=== PATIENT | female | born 1955 | race Caucasian/White ===

== ENCOUNTER 2018-11-19 05:24 | Emergency (ER) | payer BC, OTHER ==
[2018-11-19 05:31] VITALS: BP 151/87; PULSE 98; RESP 17; TEMP 97.4
--- NOTE | 2018-11-19 05:33 | ED ---
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 She presents the ED today for reevaluation of cellulitis. Patient reports that 2 days ago she noticed a pimple off the lateral aspect of her right eyebrow. Yesterday she noted that it seemed to be getting more swollen and red so she was evaluated at urgent care where she was diagnosed with possible cellulitis possible infected sebaceous cyst. Patient was prescribed minocycline. Patient reports that she took 2 doses minocycline but upon waking this morning she noted that the area seemed to be more erythematous and swollen so she came to the ER for reevaluation. denies any associated symptoms. She denies any fevers, chills, nausea, vomiting. She denies any vision changes or pain with movement of her eye. She denies any previous history of infection. He denies any injury to the area. She denies any recurrent skin infections in the past though she does express concern that she is exposed to multiple pathogens in her work as a nurse. - Related Data Home Medications Medication Instructions Recorded Confirmed Amitriptyline HCl [Elavil] 100 mg PO HS 11/19/18 11/19/18 Cholecalciferol [Vitamin D3] 1,000 unit PO DAILY 11/19/18 11/19/18 Fluticasone Propionate [Flonase 1 spray EA NOSTRIL DAILY 11/19/18 11/19/18 Allergy Relief] Levothyroxine Sodium [Synthroid] 150 mcg PO DAILY 11/19/18 11/19/18 Minocycline HCl [Minocin] 100 mg PO Q12H 11/19/18 11/19/18 Previous Rx's Medication Instructions Recorded Clindamycin [Cleocin] 450 mg PO Q6H 7 Days capsule 11/19/18 Dicloxacillin [Dynapen] 500 mg PO Q6H 7 Days #28 capsule 11/19/18 Allergies Allergy/AdvReac Type Severity Reaction Status Date / Time ciprofloxacin [From Cipro] Allergy Rash/Hives Verified 11/19/18 05:31 ciprofloxacin HCl Allergy Rash/Hives Verified 11/19/18 05:31 [From Cipro] povidone-iodine Allergy Rash/Hives Verified 11/19/18 05:31 [From Betadine] soap [From Betadine] Allergy Rash/Hives Verified 11/19/18 05:31 Sulfa (Sulfonamide Allergy Rash/Hives Verified 11/19/18 05:31 Antibiotics) Review of Systems ROS Statement: Those systems with pertinent positive or pertinent negative responses have been documented in the HPI. ROS Other: All systems not noted in ROS Statement are negative. Past Medical History Past Medical History: Thyroid Disorder Additional Past Medical History / Comment(s): arthiritis, migraines History of Any Multi-Drug Resistant Organisms: None Reported Past Surgical History: Joint Replacement Additional Past Surgical History / Comment(s): bilateral knees Past Psychological History: No Psychological Hx Reported Smoking Status: Never smoker Past Alcohol Use History: None Reported Past Drug Use History: None Reported General Exam - General Exam Comments Initial Comments: GENERAL: Patient is well-developed and well-nourished. Patient is nontoxic and well- hydrated and is in no distress. HENT: Normocephalic, Atraumatic. Neck is soft and supple. No significant lymphadenopathy is noted. Oropharynx is clear. Moist mucous membranes. Neck has full range of motion without eliciting any pain. EYES: The sclera were anicteric and conjunctiva were pink and moist. Extraocular movements were intact and pupils were equal round and reactive to light. Eyelids were unremarkable. PULMONARY: Unlabored respirations. Good breath sounds bilaterally. No audible rales rhonchi or wheezing was noted. CARDIOVASCULAR: There is a regular rate and rhythm without any murmurs gallops or rubs. ABDOMEN: Soft and nontender with normal bowel sounds. SKIN: Small circular area of erythema superior lateral to the right eyebrow. There does appear to be a very small abscess similar to a pimple with surrounding erythema. The skin is indurated. There is no area of large fluctuance amenable to drainage. NEUROLOGIC: Patient is alert and oriented x3. Cranial nerves II through XII are grossly intact. Motor and sensory are also intact. Normal speech, volume and content. Symmetrical smile. MUSCULOSKELETAL: Normal extremities with adequate strength and full range of motion. No lower extremity swelling or edema. No calf tenderness. LYMPHATICS: No significant lymphadenopathy is noted PSYCHIATRIC: Normal psychiatric evaluation. Limitations: no limitations Limitations: no limitations Course Vital Signs 11/19/18 05:27 Temperature 97.4 F L Pulse Rate 98 Respiratory 17 Rate Blood Pressure 151/87 O2 Sat by Pulse 97 Oximetry Medical Decision Making - Medical Decision Making The patient was seen and evaluated history was obtained from the patient At this time I don't feel the patient warrants any further evaluation with labs or imaging. She has no signs or symptoms concerning for preseptal or orbital cellulitis I do feel the patient's high risk for MRSA infection will plan to change her antibiotics to clindamycin as well as a dicloxacillin to cover for any possible strep species. Patient agreeable to this plan. Close observation was advised. Return parameters were discussed. Signs and symptoms of preseptal or septal cellulitis were discussed. Questions pertaining care were answered patient was discharged home in stable condition. Disposition Clinical Impression: Cellulitis and abscess of face Disposition: HOME SELF-CARE Instructions (If sedation given, give patient instructions): Cellulitis (DC), Periorbital Cellulitis in Adults (ED) Prescriptions: Clindamycin [Cleocin] 450 mg PO Q6H 7 Days capsule Dicloxacillin [Dynapen] 500 mg PO Q6H 7 Days #28 capsule Is patient prescribed a controlled substance at d/c from ED?: No Referrals: Aravind Saba MD [Primary Care Provider] - 1-2 days
== END 2018-11-19 06:22 | disposition home or self-care (01) ==
LOC: EC 05:24
DX: L03.211 Cellulitis of face (principal); L02.01 Cutaneous abscess of face; E07.9 Disorder of thyroid, unspecified; Z79.899 Other long term (current) drug therapy; Z88.1 Allergy status to other antibiotic agents; Z88.2 Allergy status to sulfonamides; Z88.8 Allergy status to other drugs, medicaments and biological substances; Z91.09 Other allergy status, other than to drugs and biological substances; Z96.653 Presence of artificial knee joint, bilateral
CPT/HCPCS: 99283

== ENCOUNTER 2022-05-07 11:38 | Emergency (ER) | payer BC, MEDICARE ==
[2022-05-07 11:45] VITALS: RESP 18; TEMP 98
[2022-05-07] MEDS ORDERED: SODIUM CHLORIDE 0.9% 1,000 ML IV ONE (11:51)
[2022-05-07] MEDS ORDERED: methylPREDNISolone SOD SUCCI 125 MG/2 ML VIAL IV STA (11:51)
[2022-05-07] MEDS ORDERED: diphenhydrAMINE 50 MG/ML 1 ML VIAL IVP STA (11:51)
[2022-05-07] MEDS ORDERED: FAMOTIDINE 20 MG/2 ML VIAL IV STA (11:51)
--- NOTE | 2022-05-07 11:53 | ED ---
General Adult HPI - General Chief complaint: Allergic Reaction Stated complaint: Allergic reaction,SOB,Rash Time Seen by Provider: 05/07/22 11:45 Source: patient, RN notes reviewed, old records reviewed Mode of arrival: ambulatory Limitations: no limitations - History of Present Illness Initial comments: This is a 67-year-old female presents emergency department stating that she took Metamucil at about 8:30 and then by 9:00 she was itching felt like her throat was a little full but had no difficulty breathing or swallowing. Patient states she took Benadryl at 9:00 and symptoms continue she has rash on her arms and her abdomen and chest. Patient denies any chest pain. Patient denies palpitations. Patient denies any similar symptoms in the past. - Related Data Home Medications Medication Instructions Recorded Confirmed Amitriptyline HCl [Elavil] 100 mg PO HS 11/19/18 11/19/18 Cholecalciferol [Vitamin D3] 1,000 unit PO DAILY 11/19/18 11/19/18 Fluticasone Propionate [Flonase 1 spray EA NOSTRIL DAILY 11/19/18 11/19/18 Allergy Relief] Levothyroxine Sodium [Synthroid] 150 mcg PO DAILY 11/19/18 11/19/18 Minocycline HCl [Minocin] 100 mg PO Q12H 11/19/18 11/19/18 Previous Rx's Medication Instructions Recorded Clindamycin [Cleocin] 450 mg PO Q6H 7 Days capsule 11/19/18 Dicloxacillin [Dynapen] 500 mg PO Q6H 7 Days #28 capsule 11/19/18 predniSONE [Deltasone] 40 mg PO DAILY #8 tab 05/07/22 Allergies Allergy/AdvReac Type Severity Reaction Status Date / Time ceftibuten [From Cedax] Allergy Rash/Hives Verified 05/07/22 11:46 ciprofloxacin [From Cipro] Allergy Rash/Hives Verified 11/19/18 05:31 ciprofloxacin HCl Allergy Rash/Hives Verified 11/19/18 05:31 [From Cipro] povidone-iodine Allergy Rash/Hives Verified 11/19/18 05:31 [From Betadine] psyllium [From Metamucil] Allergy Rash/Hives Verified 05/07/22 11:46 soap [From Betadine] Allergy Rash/Hives Verified 11/19/18 05:31 Sulfa (Sulfonamide Allergy Rash/Hives Verified 11/19/18 05:31 Antibiotics) Review of Systems ROS Statement: Those systems with pertinent positive or pertinent negative responses have been documented in the HPI. ROS Other: All systems not noted in ROS Statement are negative. Past Medical History Past Medical History: Thyroid Disorder Additional Past Medical History / Comment(s): arthiritis, migraines History of Any Multi-Drug Resistant Organisms: None Reported Past Surgical History: Joint Replacement Additional Past Surgical History / Comment(s): bilateral knees Past Psychological History: No Psychological Hx Reported Smoking Status: Never smoker Past Alcohol Use History: Occasional Past Drug Use History: None Reported General Exam - General Exam Comments Initial Comments: GENERAL: Patient is well-developed and well-nourished. Patient is nontoxic and well- hydrated and is in mild distress. ENT: Neck is soft and supple. No significant lymphadenopathy is noted. Oropharynx is clear. Moist mucous membranes. Neck has full range of motion without eliciting any pain. EYES: The sclera were anicteric and conjunctiva were pink and moist. Extraocular movements were intact and pupils were equal round and reactive to light. Eyelids were unremarkable. PULMONARY: Unlabored respirations. Good breath sounds bilaterally. No audible rales rhonchi or wheezing was noted. CARDIOVASCULAR: There is a regular rate and rhythm without any murmurs gallops or rubs. ABDOMEN: Soft and nontender with normal bowel sounds. SKIN: Patient has erythematous rash on both arms abdomen and chest. NEUROLOGIC: Patient is alert and oriented x3. Cranial nerves II through XII are grossly intact. Motor and sensory are also intact. Normal speech, volume and content. Symmetrical smile. MUSCULOSKELETAL: Normal extremities with adequate strength and full range of motion. No lower extremity swelling or edema. No calf tenderness. LYMPHATICS: No significant lymphadenopathy is noted PSYCHIATRIC: Normal psychiatric evaluation. Limitations: no limitations Course Vital Signs 05/07/22 05/07/22 11:42 12:18 Temperature 98 F Pulse Rate 106 H Respiratory 18 18 Rate Blood Pressure 152/88 O2 Sat by Pulse 100 Oximetry Medical Decision Making - Medical Decision Making EKG shows sinus rhythm at 94 bpm ND interval 290 QRS is 97 QT interval 375 QTC is 426. Patient's EKG shows no ST segment elevation. Patient received Benadryl and Solu-Medrol and Pepcid in the emergency department. I went back into reevaluate the patient after about an hour and she was symptom- free at this time. Disposition Clinical Impression: Allergic reaction Disposition: HOME SELF-CARE Condition: Good Instructions (If sedation given, give patient instructions): General Allergic Reaction (ED) Prescriptions: predniSONE [Deltasone] 40 mg PO DAILY #8 tab Is patient prescribed a controlled substance at d/c from ED?: No Referrals: Aravind Saba MD [Primary Care Provider] - 1-2 days Time of Disposition: 12:53
[2022-05-07 13:05] VITALS: BP 139/90; PULSE 78
== END 2022-05-07 13:05 | disposition home or self-care (01) ==
LOC: EC 11:38
DX: R21 Rash and other nonspecific skin eruption (principal); T50.995A Adverse effect of other drugs, medicaments and biological substances, initial encounter; E07.9 Disorder of thyroid, unspecified; Z88.1 Allergy status to other antibiotic agents; Z91.041 Radiographic dye allergy status; Z91.048 Other nonmedicinal substance allergy status; Z88.8 Allergy status to other drugs, medicaments and biological substances; Z88.2 Allergy status to sulfonamides
CPT/HCPCS: 99283; 96374; 96375 ×2; 96361; 93005; J1200; J2930

== ENCOUNTER → 2022-09-29 | Outpatient (CLI) | payer MEDICARE ==
--- NOTE | 2022-09-29 17:50 | BD ---
EXAMINATION TYPE: Axial Bone Density DATE OF EXAM: 09/29/2022 CLINICAL HISTORY: 67 year old Female. ICD-10 CODE: Z78.0 Post menopausal Height: 66 Weight: 189.5 FRAX RISK QUESTIONS: Alcohol (3 or more units per day): no Family History (Parent hip fracture): yes Glucocorticoids (More than 3mos): no (Ex: prednisone, prednisolone, methylprednisolone, dexamethasone, and hydrocortisone). History of Fracture in Adulthood: no Secondary Osteoporosis: 1. Type 1 Diabetes: no 2. Hyperthyroidism: no 3. Menopause before 45: no 4. Malnutrition: no 5. Chronic liver disease: no Rheumatoid Arthritis: no Current Tobacco Use: no RISK FACTORS HISTORY OF: Surgery to Spine/Hip(right/left)/Wrist (right/left): right hip replaced 2018 Family History of Osteoporosis: yes Active: yes Diet low in dairy products/other sources of calcium: no Postmenopausal woman: no Lost more than 2 inches in height since high school: yes MEDICATIONS: Thyroid Medications: levothyroxine How Lon years Additional History: EXAM MEASUREMENTS: Bone mineral densitometry was performed using the [employer] System. Bone mineral density as measured about the Lumbar spine is: ----- L1-L4(G/cm2): 1.251 T Score Values are as follows: ----- L1: -1.2 ----- L2: 1.2 ----- L3: 1.8 ----- L4: 0.5 ----- L1-L4: 0.6 Bone mineral density : baseline Bone mineral density about the L hip (g/cm2): 0.837 T Score values are as follows: -----L Neck: -1.4 -----L Total: -1.9 Bone mineral density : baseline FRAX%s: The graph provided illustrates a 16.2% chance for a major osteoporotic fx and a 1.0% chance f or the hips probability for fx in 10 years time. IMPRESSION: Osteopenia (T Score between -2.5 and -1). There is slightly increased risk of fracture and the patient may be considered for treatment. Re-Screen 2-5 years. NOTE: T-SCORE=SD OF THE YOUNG ADULT MEAN.
== END | disposition home or self-care (01) ==
LOC: RADBDWWP 10:11
PROVIDERS: ATTEND Family Medicine
DX: M85.89 Other specified disorders of bone density and structure, multiple sites (principal); Z78.0 Asymptomatic menopausal state
CPT/HCPCS: 77080

== ENCOUNTER → 2022-11-24 | Outpatient (CLI) | payer MEDICARE ==
[2022-11-24 22:48] LABS: HGB 13.9 g/dL (12.0-15.0); MCH 29.3 pg (27.0-32.0); MCHC 33.9 g/dL (32.0-37.0); MCV 86.3 fL (80.0-97.0); Mean Platelet Volume 9.7 fL (9.5-12.2); NRBC Per 100 WBC 0 /100 WBCS (0.0-0.0); Platelet Count 251 X 10*3/uL (140-440); RBC 4.75 X 10*6/uL (4.10-5.20); RDW 13.6 % (11.5-14.5); WBC 6.15 X 10*3/uL (4.50-10.00)
[2022-11-24 23:45] LABS: Prolactin 6.9 ng/mL (2.800-29.200); Testosterone 13.9 ng/mL (7.00-45.62)
[2022-11-24 23:56] LABS: % Iron Saturation 14.88 (12.00-45.00); African American GFR (CKD) 87.3 (60.0-200.0); Albumin 4.8 g/dL (3.8-4.9); Albumin/Globulin Ratio 1.64 (1.60-3.17); Anion Gap 15.6 mmol/L (10.00-18.00); BUN/Creat Ratio 16.87 Ratio (12.00-20.00); Blood Urea Nitrogen 13.8 mg/dL (9.0-27.0); Calcium 10.2 mg/dL (8.7-10.3); Carbon Dioxide 24.7 mmol/L (20.0-27.5); Globulin 2.9 g/dL (1.6-3.3); Non-African American GFR(CKD) 75.3 (60.0-200.0); Potassium 4.1 mmol/L (3.5-5.5); Total Bilirubin 0.4 mg/dL (0.30-1.20); Total Protein 7.7 g/dL (6.2-8.2)
== END | disposition home or self-care (01) ==
LOC: LABWHC1 14:27
PROVIDERS: ATTEND Internal Medicine Endocrinology, Diabetes & Metabolism
DX: E03.8 Other specified hypothyroidism (principal); L65.9 Nonscarring hair loss, unspecified; R53.83 Other fatigue
CPT/HCPCS: 36415; 80053; 82533; 82607; 82626; 82728; 83540; 83550; 84146; 84403; 84443; 85027

== ENCOUNTER → 2023-01-09 | Outpatient (CLI) | payer MEDICARE | END | disposition home or self-care (01) | LOC: LABWHC1 10:43 | PROVIDERS: ATTEND Internal Medicine Endocrinology, Diabetes & Metabolism | DX: E03.8 Other specified hypothyroidism (principal) | CPT/HCPCS: 36415; 84443 ==

== ENCOUNTER → 2023-03-09 | Outpatient (CLI) | payer MEDICARE ==
[2023-03-09 20:51] LABS: Basophils # (A) 0.03 X 10*3/uL (0.00-0.10); Basophils % (A) 0.7 %; Eosinophils # (A) 0.13 X 10*3/uL (0.04-0.35); Eosinophils % (A) 3.1 %; HCT 43.2 % (37.2-46.3); HGB 13.7 g/dL (12.0-15.0); Immature Grans, Automated 0.2 %; Lymphocytes # (A) 0.72 X 10*3/uL (0.90-5.00); Lymphocytes % (A) 17.1 %; MCH 28.1 pg (27.0-32.0); MCHC 31.7 g/dL (32.0-37.0); MCV 88.5 fL (80.0-97.0); Mean Platelet Volume 9.8 fL (9.5-12.2); Monocytes # (A) 0.36 X 10*3/uL (0.20-1.00); Monocytes % (A) 8.6 %; NRBC Per 100 WBC 0 /100 WBCS (0.0-0.0); Neutrophils # (A) 2.95 X 10*3/uL (1.80-7.70); Neutrophils % (A) 70.3 %; Platelet Count 234 X 10*3/uL (140-440); RBC 4.88 X 10*6/uL (4.10-5.20); RDW 13.5 % (11.5-14.5)
[2023-03-09 21:52] LABS: % Iron Saturation 26.07 (12.00-45.00); T4, Free (Free Thyroxine) 1.85 ng/dL (0.800-1.800)
== END | disposition home or self-care (01) ==
LOC: LABWHC1 11:20
PROVIDERS: ATTEND Dermatology
DX: L65.0 Telogen effluvium (principal)
CPT/HCPCS: 36415; 82306; 82728; 83540; 83550; 84439; 84443; 85025

== ENCOUNTER → 2023-03-28 | Outpatient (CLI) | payer MEDICARE ==
[2023-03-28 20:11] LABS: ALT 22 U/L; AST 18 U/L; Albumin 4.5 d/dL; Alkaline Phosphatase 88 U/L; BUN/Creat Ratio 17.57 Ratio; Blood Urea Nitrogen 12.3 mg/dL; Calcium 9.9 mg/dL; Carbon Dioxide 26.3 mmol/L; Chloride 106 mmol/L; Chol/HDL Ratio 2.78 Ratio; Globulin 2.5 d/dL; Glucose 123 mg/dL; LDL Cholesterol,Calculated 121.9 mg/dL; Potassium 4.5 mmol/L; Sodium 142 mmol/L; Total Bilirubin 0.3 mg/dL; VLDL Calculation 19.66 mg/dL
[2023-03-28 20:42] LABS: Hepatitis B Core IgM Nonreactive; Hepatitis B Surface AB- Quant 8.6 mIU/mL; Hepatitis B Surface Antigen Nonreactive; Hepatitis C IgG Antibody Nonreactive
== END | disposition home or self-care (01) ==
LOC: LABWHC1 11:45
PROVIDERS: ATTEND Dermatology
DX: Z48.02 Encounter for removal of sutures (principal); L63.8 Other alopecia areata
CPT/HCPCS: 36415; 80053; 80061; 83721; 86480; 86704; 86705; 86706; 86803; 87340

== ENCOUNTER → 2023-05-30 | Outpatient (CLI) | payer MEDICARE | END | disposition home or self-care (01) | LOC: LABWHC1 08:38 | PROVIDERS: ATTEND Internal Medicine Endocrinology, Diabetes & Metabolism | DX: E03.8 Other specified hypothyroidism (principal) | CPT/HCPCS: 36415; 84443 ==

== ENCOUNTER → 2023-09-28 | Outpatient (CLI) | payer MEDICARE ==
--- NOTE | 2023-09-28 12:02 | XR ---
EXAMINATION TYPE: XR chest 2V DATE OF EXAM: 09/28/2023 COMPARISON: 07/25/2023 HISTORY: Shortness of breath TECHNIQUE: Frontal and lateral views of the chest are obtained. FINDINGS: Scattered senescent parenchymal changes noted. Hyperinflation compatible with COPD. No evidence for infiltrate. No evidence for atelectasis. Heart size is stable. Mediastinal structures are stable and grossly unremarkable. No evidence for hilar prominence. Degenerative changes dorsal spine. IMPRESSION: 1. No evidence for acute pulmonary disease.
== END | disposition home or self-care (01) ==
LOC: RADXRMAIN 11:41
PROVIDERS: ATTEND Family Medicine
DX: J20.9 Acute bronchitis, unspecified (principal)
CPT/HCPCS: 71046

== ENCOUNTER → 2023-11-30 | Outpatient (CLI) | payer MEDICARE | END | disposition home or self-care (01) | LOC: LABWHC1 12:33 | PROVIDERS: ATTEND Internal Medicine Endocrinology, Diabetes & Metabolism | DX: E03.8 Other specified hypothyroidism (principal) | CPT/HCPCS: 36415; 84443 ==

== ENCOUNTER → 2024-07-11 | Outpatient (CLI) | payer MEDICARE | END | disposition home or self-care (01) | LOC: LABWHC1 10:09 | PROVIDERS: ATTEND Internal Medicine Endocrinology, Diabetes & Metabolism | DX: E03.8 Other specified hypothyroidism (principal) | CPT/HCPCS: 36415; 84443 ==

== ENCOUNTER → 2025-01-07 | Outpatient (CLI) | payer MEDICARE ==
[2025-01-07 16:39] LABS: ALT 15 U/L (8-44); AST 15 U/L (13-35); Albumin 4.2 g/dL (3.8-4.9); Alkaline Phosphatase 89 U/L (41-126); BUN/Creat Ratio 17.89 Ratio (12.00-20.00); Blood Urea Nitrogen 16.1 mg/dL (9.0-27.0); Calcium 9.6 mg/dL (8.7-10.3); Carbon Dioxide 25.2 mmol/L (21.6-31.8); Chloride 103 mmol/L (96-109); Globulin 2.8 g/dL (1.6-3.3); Glucose 99 mg/dL (70-110); Potassium 4.4 mmol/L (3.5-5.5); Sodium 139 mmol/L (135-145); Total Bilirubin 0.3 mg/dL (0.3-1.2)
== END | disposition home or self-care (01) ==
LOC: LABWHC1 07:12
PROVIDERS: ATTEND Internal Medicine Endocrinology, Diabetes & Metabolism
DX: E03.8 Other specified hypothyroidism (principal); E55.9 Vitamin D deficiency, unspecified
CPT/HCPCS: 36415; 80053; 82306; 84443